=== PATIENT | female | born 1985 | race American Indian/Alaskan Native ===

== ENCOUNTER 2017-08-24 16:01 | Outpatient (CLI) | payer OTHER ==
[2017-08-24 16:21] VITALS: BP 131/83
== END 2017-08-24 17:20 | disposition home or self-care (01) ==
LOC: TRG 16:01
PROVIDERS: ATTEND Obstetrics & Gynecology Gynecology
DX: O48.0 Post-term pregnancy (principal); Z3A.40 40 weeks gestation of pregnancy
CPT/HCPCS: 59025

== ENCOUNTER 2017-08-25 02:21 | Outpatient (CLI) | payer OTHER ==
[2017-08-25 02:41] VITALS: BP 137/61
== END 2017-08-25 04:33 | disposition home or self-care (01) ==
LOC: TRG 02:21
PROVIDERS: ATTEND Obstetrics & Gynecology Gynecology
DX: O48.0 Post-term pregnancy (principal); Z3A.40 40 weeks gestation of pregnancy

== ENCOUNTER 2017-08-25 14:31 | Inpatient (IN) | payer SELFPAY ==
--- NOTE | 2017-08-25 15:57 | History and Physical Report ---
History of Present Illness Date of examination: 08/25/17 Date of admission: 08/25/17 14:32 Chief complaint: Painful contractions History of present illness: 32-year-old at 40+2 weeks presents in active labor, she is a [facility] patient. course has been unremarkable per patient she is GBS negative Past History Past Medical History: no pertinent history Past Surgical History: no surgical history [employer] History: denies: chlamydia, gonorrhea, hepatitis B, hepatitis C, herpes, HIV , syphilis, trichomonas Social history: , full code. denies: smoking, alcohol abuse, prescription drug abuse, IV drug use - Obstetrical History Expected Date of Delivery: 08/23/17 Actual Gestation: 40 Week(s) 2 Day(s) : 2 Para: 0 Medications and Allergies Allergies Allergy/AdvReac Type Severity Reaction Status Date / Time No Known Allergies Allergy Unverified 08/24/17 17:14 Review of Systems Constitutional: no fever, no chills, no sweats, no night sweats, no fatigue, no chronic headaches Cardiovascular: no chest pain, no orthopnea, no palpitations, no edema, no syncope, no lightheadedness, no shortness of breath, no dyspnea on exertion, no paroxysmal nocturnal dyspnea, no high blood pressure, no decreased exercise tolerance Respiratory: no cough, no cough with sputum, no hemoptysis, no shortness of breath, no dyspnea on exertion Gastrointestinal: no abdominal pain, no nausea, no vomiting, no heartburn, no indigestion Genitourinary: no vaginal bleeding, no vaginal discharge, no leakage of fluid - Vital Signs Vital signs: Vital Signs Temp Resp 98.2 F 18 08/25/17 15:01 08/25/17 15:01 Temp Pulse Resp BP Pulse Ox 98.2 F 96 H 18 141/71 08/25/17 15:01 08/25/17 15:05 08/25/17 15:01 08/25/17 15:05 - Physical Exam Cardiovascular: Regular rate, Normal S1, Normal S2 Lungs: Positive: Clear to auscultation, Normal air movement Abdomen: Positive: normal appearance, soft. Negative: distention, tenderness, guarding, rigidity Genitourinary (Female): Positive: normal external genitalia Vulva: both: normal Uterus: Positive: enlarged (EFW ~ 3500). Negative: tender Extremities: Positive: normal - Obstetrical FHR: category 1 Cervical Dilatation: 4.5 Cervical Effacement Percentage: 100 station: -2 Results All other labs normal. Assessment and Plan A: 32-year-old at 42 weeks in active labor -Cat 1 tracing P: -Admit -Obtain routine labs -Epidural when necessary -Expectant management - Patient Problems (1) 40 weeks gestation of Current Visit: Yes Status: Acute
[2017-08-25] MEDS ORDERED: MINERAL OIL PO PRN (15:59)
[2017-08-25] MEDS ORDERED: SUBLIMAZE IV PRN (15:59)
[2017-08-25] MEDS ORDERED: ePHEDrine SULFATE IV PRN ×2 (15:59→18:12)
[2017-08-25] MEDS ORDERED: BRETHINE IVP PRN (15:59)
[2017-08-25] MEDS ORDERED: BRETHINE SUB-Q PRN (15:59)
[2017-08-25] MEDS ORDERED: XYLOCAINE 2% INFILTRATI ONE (15:59)
[2017-08-25] MEDS ORDERED: PITOCin/NS 20 UNIT/1000ML DRIP 20 UNITS/1,000 ML BAG IV SCH (16:00)
[2017-08-25] MEDS ORDERED: PITOCin/NS 30 UNIT/500ML 30 UNITS/500 ML BAG IV SCH (16:00)
[2017-08-25] MEDS: LACTATED RINGERS 1,000 ML IV SCH ×2 (16:34→21:02)
[2017-08-25 17:03] LABS: Hematocrit 37.1 % (30.3-42.9); Hemoglobin 11.9 gm/dl (10.1-14.3); Mean Corpuscular HGB Conc 32 % (30-34); Mean Corpuscular Volume 77 fl (79-97); Platelet Count 239 K/mm3 (140-440); Red Blood Count 4.85 M/mm3 (3.65-5.03); Red Cell Distribution Width 15.9 % (13.2-15.2); White Blood Count 17.1 K/mm3 (4.5-11.0)
[2017-08-25 17:04] LABS: Mean Corpuscular Hemoglobin 24 pg (28-32)
--- NOTE | 2017-08-25 17:51 | Progress Note ---
Assessment and Plan A: 32-year-old at 42 weeks in active labor -Cat 1 tracing -No cervical change P: -Start Pitocin -Anticipate - Patient Problems (1) 40 weeks gestation of Current Visit: Yes Status: Acute Subjective - Subjective Date of service: 08/25/17 Interval history: No cervical change since admission, will start Pitocin Patient reports: new complaints, movement normal, contractions, no loss of fluid, no vaginal bleeding Objective - Vital Signs Vital Signs: Vital Signs - 12hr 08/25/17 08/25/17 08/25/17 15:01 15:05 16:05 Temperature 98.2 F 97.5 F L Pulse Rate 96 H 95 H Respiratory 18 18 Rate Blood Pressure 141/71 Blood Pressure 120/76 [Right] O2 Sat by Pulse Oximetry 08/25/17 08/25/17 08/25/17 16:38 17:38 17:43 Temperature Pulse Rate 100 H 101 H Respiratory 18 Rate Blood Pressure 123/69 Blood Pressure [Right] O2 Sat by Pulse 97 Oximetry 08/25/17 08/25/17 17:48 17:50 Temperature Pulse Rate 95 H 29 L Respiratory Rate Blood Pressure Blood Pressure [Right] O2 Sat by Pulse 99 78 L Oximetry - Exam FHR: category 1 Cervical Dilatation: 4.5 Cervical Effacement Percentage: 100 station: -2 - Labs Labs: Abnormal Labs 08/25/17 15:30 WBC 17.1 H MCV 77 L MCH 24 L RDW 15.9 H Laboratory Results - last 24 hr 08/25/17 15:30 WBC 17.1 H RBC 4.85 Hgb 11.9 Hct 37.1 MCV 77 L MCH 24 L MCHC 32 RDW 15.9 H Plt Count 239
[2017-08-25] MEDS ORDERED: NARCAN 2 MG/2 ML IV PRN (18:12)
--- NOTE | 2017-08-25 18:12 | Anesthesia Consultation ---
Anesthesia Consult and Med Hx Date of service: 08/25/17 - Airway Anesthetic Teeth Evaluation: Good ROM Head & Neck: Adequate Mental/Hyoid Distance: Adequate Mallampati Class: Class II Intubation Access Assessment: Probably Good - Pulmonary Exam CTA: Yes - Cardiac Exam Cardiac Exam: RRR - Pre-Operative Health Status ASA Pre-Surgery Classification: ASA2 Proposed Anesthetic Plan: Epidural - Pulmonary Hx Asthma: No COPD: No Hx Pneumonia: No - Cardiovascular System Hx Hypertension: No - Central Nervous System Hx Seizures: No Hx Psychiatric Problems: No - Endocrine Hx Renal Disease: No Hx End Stage Renal Disease: No Hx Hypothyroidism: No Hx Hyperthyroidism: No - Hematic Hx Anemia: No Hx Sickle Cell Disease: No - Other Systems Hx Alcohol Use: No
[2017-08-25] MEDS: PITOCin/NS 30 UNIT/500ML 30 UNITS/500 ML BAG IV SCH ×2 (18:20→20:15)
[2017-08-25] MEDS ORDERED: fentaNYL-BUPIV 2 MCG/ML-0.125% 200 MCG/100 ML BAG EPIDURAL SCH (19:00)
--- NOTE | 2017-08-26 00:34 | Procedure Note ---
OB Delivery Note - Delivery Date of Delivery: 08/26/17 Surgeon: JITENDRA THOMAS Estimated blood loss: 200cc - Vaginal Delivery presentation: vertex Delivery position: OP Intrapartum events: meconium Delivery induction: none Delivery augmentation: pitocin Delivery monitor: external FHT, external uterine Route of delivery: Delivery placenta: spontaneous Delivery cord: 3 umbilical vessels Episiotomy: none Delivery laceration: 3rd degree Delivery repair: vicryl Anesthesia: epidural - Infant A at 1 minute: 8 at 5 minutes: 9 Gender: Female (time of delivery 12:10 AM, weight 7 lbs. 14 oz. or 3580 g )
[2017-08-26] MEDS ORDERED: ZOFRAN IV PRN (00:36)
[2017-08-26] MEDS ORDERED: BENADRYL PO PRN (00:36)
[2017-08-26] MEDS ORDERED: DULCOLAX PR PRN (00:36)
[2017-08-26] MEDS ORDERED: TYLENOL PO PRN (00:36)
[2017-08-26] MEDS ORDERED: ANUCORT-HC PR PRN (00:36)
[2017-08-26] MEDS ORDERED: LANSINOH TP PRN ×2 (00:36)
[2017-08-26] MEDS ORDERED: TUCKS PAD TP PRN (00:36)
[2017-08-26] MEDS ORDERED: PHENERGAN PR PRN (00:36)
[2017-08-26] MEDS ORDERED: MILK OF MAGNESIA PO PRN (00:36)
[2017-08-26] MEDS ORDERED: PHENERGAN PO PRN (00:36)
[2017-08-26] MEDS ORDERED: SODIUM CHLORIDE FLUSH SYRINGE 10 ML IV NR (01:00)
[2017-08-26] MEDS: MOTRIN PO SCH ×4 (02:47→23:14)
[2017-08-26] MEDS: NORCO 5/325 PO PRN (02:48)
[2017-08-26] MEDS ORDERED: SENOKOT S PO SCH (06:00)
[2017-08-26] MEDS: PRENATAL VITAMIN PO SCH (12:31)
[2017-08-26] MEDS: FEOSOL PO SCH ×2 (12:31→21:39)
[2017-08-26] MEDS: COLACE PO SCH ×2 (12:31→21:39)
[2017-08-26 14:12] LABS: Hematocrit 29.7 % (30.3-42.9); Hemoglobin 9.4 gm/dl (10.1-14.3)
[2017-08-27] MEDS: MOTRIN PO SCH ×4 (05:17→23:20)
[2017-08-27] MEDS ORDERED: M-M-R II VACCINE SUB-Q ONE (06:00)
[2017-08-27] MEDS: NORCO 5/325 PO PRN ×2 (06:07→17:51)
[2017-08-27] MEDS: PRENATAL VITAMIN PO SCH (10:19)
[2017-08-27] MEDS: FEOSOL PO SCH ×2 (10:19→22:21)
[2017-08-27] MEDS: COLACE PO SCH ×2 (10:19→22:21)
--- NOTE | 2017-08-27 10:44 | Progress Note ---
Assessment and Plan PPD# 1 P: -Continue routine care -Anticipate discharge in 24-48 hours - Patient Problems (1) (normal spontaneous vaginal delivery) Current Visit: Yes Status: Acute (2) 40 weeks gestation of Current Visit: Yes Status: Acute Subjective - Subjective Date of service: 08/27/17 Principal diagnosis: PPD# 1 Interval history: Patient seen and examined, stable doing well no issues except complaining of hemorrhoids. Shortness of breath, no chest pain no calf pain ambulating without difficulty adequate bowel bladder function Patient reports: appetite normal, voiding normally, pain well controlled, ambulating normally, no dizzy ambulation, no nauseated : doing well Objective - Vital Signs Latest vital signs: Vital Signs Temp Pulse Resp BP BP Pulse Ox 08/27/17 08:51 97.9 F 90 18 115/67 08/27/17 00:22 97.9 F 96 H 20 119/62 98 08/26/17 13:26 98.6 F 75 18 111/61 Intake and Output 08/26/17 08/27/17 08/27/17 23:59 07:59 15:59 Intake Total 720 120 360 Output Total 600 Balance 120 120 360 Intake: Oral 360 120 360 Intake, Free Water 360 Output: Urine 600 Void 600 Other: Total, Intake Amount 360 120 360 Total, Output Amount 600 # Voids Void 2 1 - Exam Abdomen: Present: normal appearance, soft. Absent: distention, tenderness, guarding, rigidity Uterus: Present: fundal height below umbilicus. Absent: tenderness Extremities: Present: normal Incision: Present: dry, intact - Labs Labs: Abnormal lab results 08/26/17 Range/Units 13:39 Hgb 9.4 L (10.1-14.3) gm/dl Hct 29.7 L D (30.3-42.9) %
--- NOTE | 2017-08-27 10:46 | Discharge Summary ---
Providers - Providers Date of Admission: 08/25/17 14:32 Date of discharge: 08/28/17 Attending physician: JITENDRA THOMAS Primary care physician: JITENDRA THOMAS Hospitalization Reason for admission: active labor, IUP at term Delivery: Episiotomy: none Laceration: 3rd degree Incision: normal, dry Other procedures: none complications: none Discharge diagnosis: IUP at term delivered baby: female Hospital course: Uncomplicated course Condition at discharge: Good Disposition: DC-01 TO HOME OR SELFCARE - Discharge Diagnoses (1) (normal spontaneous vaginal delivery) Status: Acute (2) 40 weeks gestation of Status: Acute Plan - Discharge Medications Prescriptions: HYDROcodone/APAP 5-325 [[employer] 5/325] 1 each PO Q6HR PRN #10 tablet PRN Reason: Pain Ibuprofen [Motrin 600 MG tab] 600 mg PO Q8H PRN #30 tablet PRN Reason: Pain Multivitamin with Iron [Multivitamins with Iron] 1 each PO DAILY #30 tablet - Provider Discharge Summary Activity: no sex for 6 weeks, no heavy lifting 4 weeks, no strenuous exercise Diet: routine Additional instructions: [] Smoking cessation referral if applicable(refer to patient education folder for contact #) [] Refer to [employer] [facility] Booklet Call your doctor immediately for: * Fever > 100.5 * Heavy vaginal bleeding ( >1 pad per hour) * Severe persistent headache * Shortness of breath * Reddened, hot, painful area to leg or breast * Drainage or odor from incision. * Keep incision clean and dry at all times and follow doctor's instructions regarding bathing/showering - Follow up plan Follow up: JITENDRA THOMAS MD [Primary Care Provider] - 6 Weeks Forms: Work/School Excuse Out Patient
[2017-08-27] MEDS ORDERED: DERMOPLAST TP PRN (11:56)
[2017-08-27] MEDS ORDERED: BOOSTRIX IM ONE (12:00)
[2017-08-28] MEDS: MOTRIN PO SCH ×2 (05:12→12:08)
[2017-08-28] MEDS: PRENATAL VITAMIN PO SCH (08:47)
[2017-08-28] MEDS: COLACE PO SCH (08:48)
[2017-08-28] MEDS: FEOSOL PO SCH (08:48)
[2017-08-28] MEDS ORDERED: LACTATED RINGERS 1,000 ML IV ONE (15:00)
--- NOTE | 2017-08-28 15:26 | History and Physical Report ---
HISTORY OF PRESENT ILLNESS: The patient came in for vaginal delivery and had an epidural placed on 08/25/2017 and she had her delivery, but after her delivery, she started complaining of frontal headaches, which would increase whenever she would stand up or walk and would decrease when she lay down. This headache started a day after her vaginal delivery. We examined the patient today and decide that she has a spinal headache and we decided to do an epidural blood patch on her. PROCEDURE: After informed consent was signed, the patient was made to sit up and lumbar area was prepped and draped with Betadine solution. A 2 mL of 1% lidocaine was infiltrated on the L3-L4 interspace and #18-gauge needle was used to identify the epidural space with loss of resistance technique. Once the epidural space was identified, we injected 20 mL of patient's blood drawn from her left antecubital vein under sterile technique into the epidural space. The patient tolerated the procedure well. Vital signs stable. Once the procedure was over, she was made to lay down and I instructed the nurse to give her 1000 mL of fluids intravenously and she should be ready to be released at about 4:00 and ready to go home with instructions of bed rest, lot of p.o. fluids. JOB# [id number] [facility]NEY
[2017-08-28 18:40] VITALS: BP 130/75
== END 2017-08-28 17:00 | disposition home or self-care (01) | DRG 775 ==
LOC: TRG 14:31 → LD 14:32 → TRG 14:32 → OB 08-26 02:33
PROVIDERS: ADMIT Obstetrics & Gynecology Gynecology; ATTEND Obstetrics & Gynecology Gynecology
PROC: 10E0XZZ Delivery of Products of Conception, External Approach (ICD-10-PCS; principal; 2017-08-26)
PROC: 0DQR0ZZ Repair Anal Sphincter, Open Approach (ICD-10-PCS; 2017-08-26)
PROC: 00HU33Z Insertion of Infusion Device into Spinal Canal, Percutaneous Approach (ICD-10-PCS; 2017-08-26)
PROC: 3E0R3BZ Introduction of Anesthetic Agent into Spinal Canal, Percutaneous Approach (ICD-10-PCS; 2017-08-26)
PROC: 3E0234Z Introduction of Serum, Toxoid and Vaccine into Muscle, Percutaneous Approach (ICD-10-PCS; 2017-08-27)
PROC: 009U3ZX Drainage of Spinal Canal, Percutaneous Approach, Diagnostic (ICD-10-PCS; 2017-08-28)
DX: O77.0 Labor and delivery complicated by meconium in amniotic fluid (principal); O70.20 Third degree perineal laceration during delivery, unspecified; Z37.0 Single live birth; Z3A.40 40 weeks gestation of pregnancy; Z23 Encounter for immunization; O89.4 Spinal and epidural anesthesia-induced headache during the puerperium
CPT/HCPCS: 36415; 85014; 85018; 85027; 86706; 86762; 86803; 86850; 86900; 86901; 99211; G0463; J2590; J3010; J7120